=== PATIENT | male | born 1980 | race Caucasian/White ===

== ENCOUNTER 2025-01-25 08:29 | Outpatient (AMB) | payer OTHER, SELFPAY ==
--- NOTE | 2025-01-25 08:33 | A.OFFVIS_ITS ---
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 Patient was seen at [facility] and was referred to orthopedic. Currently he feels he tore his right bicep. His discomfort is located in his bicep and he has ongoing swelling. He has a tightness sensation with extending his arm. Patient has concerns of redness. Denies numbness or tingling. He has been out of work since his injury. Finds relief with icing and ibuprofen. Allergies azithromycin Allergy (Verified 01/25/25 08:38) Hives penicllin Allergy (Uncoded 01/25/25 08:38) Hives Medication List - Last Reconciled 01/25/25 by Juwan Gama PA-C No Known Home Meds HPI HPI SUBSORTER- RT distal bicep WC inj 01/17/25: Details: A year old gentleman presents to the office today for an injury he sustained to his right biceps on 01/17/2025 while at work. 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 He immediately felt pain in the right biceps region. He was seen in urgent care where evaluation was suspicious of a biceps tendon injury and he was referred to our office for ortho eval. He states since the date of injury he has been out of work. FORMERLY [facility], [facility]1983 Medical History (Updated 01/25/25 @ 14:04 by Iesha Rosa RN) Insomnia Surgical History (Updated 01/25/25 @ 14:28 by Iesha Rosa RN) Hx of arthroscopy of knee Social History (Updated 01/25/25 @ 08:38 by DORIAN Sosa) Household Members Other:: roommate Are you a primary child care center assistant director to a significant other at home: No Do you presently have visiting nurse or other home services: No Patient Tobacco Use Status: Never used Tobacco Have you been hit, kicked, punched, or otherwise hurt by someone within the past year? 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 Review of Systems Const All systems reviewed & are unremarkable except as noted in HPI and below Physical Exam Const General: cooperative, healthy appearing, comfortable, no acute distress, well developed and alert Orientation/consciousness: patient oriented x3 HEENT Head: Yes normal to inspection, Yes normocephalic and Yes atraumatic Eyes General: appearance normal, both eyes and all related structures Neck Neck: Yes normal visual inspection and Yes no lymphadenopathy Resp Effort & Inspection: normal respiratory effort and able to speak in complete sentences Cardio Rate: regular rate Peripheral pulses: Peripheral pulses 2+ throughout GI Inspection: Yes normal to inspection Palpation (GI): Soft to palpation Skin General skin exam: no rashes or lesions noted Neuro General: patient oriented x3 Extrem Other: Right elbow normal to inspection. There is significant ecchymosis over the bicep region with pain along the distal bicep tendon with a notable defect. Pain with pronation against resistance. Psych Appearance: grossly normal Mental Status: mental status grossly normal Assessment & Plan Assessment & Plan (1) Rupture of right biceps tendon: Code(s): S46.211A - Strain of muscle, fascia and tendon of other parts of biceps, right arm, initial encounter Category: Medical Qualifiers: Encounter type: initial encounter Qualified Code(s): S46.211A - Strain of muscle, fascia and tendon of other parts of biceps, right arm, initial encounter Plan: This is a 45-year-old right hand dominant gentleman who sustained an injury to his right distal biceps at work. WorksHe for the [employer] and forcefully opening a door and felt a pop in his right antecubital fossa. This occurred 8 days ago. He presents today with pain and weakness. On evaluation he had a positive hook test and weakness in supination consistent with a full rupture of the distal biceps. This was 8 days ago he is very active. I am concerned about the timing of surgery and the increasing difficulty of repair as more time passes. As a result we discussed urgent repair and he will be scheduled later today. I discussed the surgery with him. I discussed the risks, benefits and alternatives of surgery including, but not limited to, the risk of infection, stiffness, re-injury, injury to nerve and tendon. I discussed the possibility of retraction and the potential difficulty in repair. I explained the expected duration of recovery. He expressed understanding. All his questions were answered. We will proceed forward accordingly. Coding Level of Care Code New Pt Level 4 (77197) Complex EM visit Add On G2211 Diagnoses Rupture of right biceps tendon, initial encounter S46.576G Encounter type: initial encounter
--- OUTSIDE RECORDS SUMMARY | 2025-01-25 08:37 | XMS_ITS | Clinical Summary ---
Author Organization [facility] Address [address] [place] [address] Care Team Providers Care Hide Cleaner Name Role Phone Unknown Primary Care Provider [phone] -[phone] Allergies Active Allergy Reactions Criticality Noted Date Comments Azithromycin Other (See Comments) 09/01/2020 Penicillins Hives Medium 09/01/2020 Medications esomeprazole (NexIUM) 40 MG capsuleIndicatio ns:Gastroesophag eal reflux disease without esophagitis Take 1 capsule (40 mg total) by mouth every morning before breakfast. 30 capsule 1 10/20/2020 Active Active Problems No known active problems Social History Tobacco Use Types Packs/Day Years Used Date Smoking Tobacco: Never Assessed Sex and Gender Information Value Date Recorded Sex Assigned at Not on file Legal Sex Male 8:41 AM EST Gender Identity Not on file Sexual Orientation Not on file Last Filed Vital Signs Vital Sign Reading Time Taken Comments Blood Pressure 141/87 10/20/2020 8:52 AM EST Pulse 81 10/20/2020 8:52 AM EST Temperature 36.8 ??C (98.2 ??F) 10/20/2020 8:52 AM ES T Respiratory Rate - - Oxygen Saturation 98% 10/20/2020 8:52 AM EST Inhaled Oxygen Concentration - - Weight 102 kg (225 lb) 10/20/2020 8:52 AM EST Height 182.9 cm (6') 10/20/2020 8:52 AM EST Body Mass Index 30.52 10/20/2020 8:52 AM EST Plan of Treatment Health Maintenance Due Date Last Done Comments Hepatitis C Virus Screening 1981 HIV Screening 1994 DTaP/Tdap/Td Vaccines (1 - Tdap) 01/13/2000 Hepatitis B Vaccines (1 of 3 - 19+ 3-dose series) 01/13/2000 COVID-19 Vaccine (2023-2 5 season) 2024 Influenza Vaccine 04/05/2025 HPV Vaccines Aged Out No longer eligi ble based on patient's age to complete this topic Pneumococcal Vaccine: Pediat jeff (0-5 Years) and At-Risk Patients (6 to 49 Years) Aged Out No longer eligible b ased on patient's age to complete this topic Insurance Care Teams Hide Cleaner Relationship Specialty Start Date End Date Unknown Unknow Provider Address PCP - General 09/05/20
== END 2025-01-25 10:13 | disposition home or self-care (01) ==
PROVIDERS: PCP Internal Medicine; Visit Provider Physician Assistant
DX: S46.211A Strain of muscle, fascia and tendon of other parts of biceps, right arm, initial encounter (principal)
CPT/HCPCS: 99204

== ENCOUNTER → 2025-01-25 08:29 | Outpatient (BNVA) | payer OTHER, SELFPAY | PROVIDERS: PCP Internal Medicine; Visit Provider Physician Assistant | DX: S46.211A Strain of muscle, fascia and tendon of other parts of biceps, right arm, initial encounter (principal) | CPT/HCPCS: 99202 ==

== ENCOUNTER 2025-01-25 13:15 | Day surgery (SDC) | payer OTHER, SELFPAY ==
[2025-01-25] VITALS (7 sets, daily range): BP systolic 118–153; BP diastolic 58–95; PULSE 72–96; RESP 12–20; TEMP 36.1–36.9; O2SAT 96–99; BMI 29.2
--- NOTE | ~2025-01-25 | FL_ITS ---
EXAMINATION: FL GUIDANCE ONLY HISTORY: RIGHT DISTAL BICEPS REPAIR COMPARISON: None available. TECHNIQUE: Fluoroscopy time: 22.96 seconds. Cumulative Dose: 0.995 mGy. DAP: 0.0603 mGym2 Images: 4. FINDINGS: Images demonstrate a metallic orthopedic suture button along the proximal radius. FL/FL guidance in OR IMPRESSION: Fluoroscopy during procedure. Please see procedure report for additional information. Electronically signed by: Omi Rolon MD 01/29/2025 07:04 AM EDT
[2025-01-25] MEDS: Lactated Ringers 1,000 ML 80 ML IVCONT (14:19)
--- NOTE | 2025-01-25 14:55 | PC.NURSE ---
Dr. Alvarado updated regarding patient allergies and reactions. Stated okay to proceed with cefazolin as ordered.
[2025-01-25] MEDS: ceFAZolin Sodium/Dextrose,Iso 2 GM/50 ML PIGGYBACK IV (15:43)
--- NOTE | 2025-01-25 15:57 | P.CONAN_ITS ---
HPI - Anesthesia Eval Consult details Narrative: 45 yo M presenting for right distal bicep tendon repair PMFSH Active Problems Active Problems: All Active Problems Rupture of right biceps tendon (Acute) Past Medical History Medical History (Updated 01/25/25 @ 14:04 by Iesha Rosa RN) Insomnia Family History Family history of problems with anesthesia: No Surgical History Surgical History (Updated 01/25/25 @ 14:28 by Iesha Rosa RN) Hx of arthroscopy of knee History of Problems with Anesthesia: No Social History Social History (Updated 01/25/25 @ 08:38 by Ibis Cordova David) Household Members Other:: roommate Are you a primary animal care worker to a significant other at home: No Do you presently have visiting nurse or other home services: No Patient Tobacco Use Status: Never used Tobacco Have you been hit, kicked, punched, or otherwise hurt by someone within the past year? 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 Meds Allergies Allergy/AdvReac Type Severity Reaction Status Date / Time azithromycin Allergy Hives Verified 01/25/25 08:38 penicllin Allergy Hives Uncoded 01/25/25 08:38 Active Medications: Current Medications Lactated Ringer's (Lr) 1,000 mls @ 80 mls/hr IVCONT .[id number] Last Admin: 01/25/25 14:19 Dose: 80 mls/hr Exam Exam Date and Time: 01/25/25 1510 Height,Weight and Vital Signs: Height 6 ft Weight 97.522 kg Last Vital Signs Temp 98.5 F 01/25/25 14:23 Pulse 74 01/25/25 14:23 Resp 18 01/25/25 14:23 BP 153/95 H 01/25/25 14:23 Pulse Ox 99 01/25/25 14:23 O2 Del Method Room Air 01/25/25 14:23 Airway Mallampati Class: I TM Dist: >3cm Neck ROM: Full Loose/Missing/Broken Teeth: No (patient denies any loose or broken teeth) Heart: S1S2 Lungs: CTAB Assessment and Plan Assessment Anesthesia Assessment: Anesthesia Plan Discussed and Chart Reviewed Final Anesthetic Review Family History of Problems with Anesthesia: No History of Problems with Anesthesia: No NPO: Yes ASA Class: I Final Preanesthetic Review: No Changes in Pt Med Stat, Meds/Allgs Chart Reviewed, Consent Obtained/Reviewed and Anes Risks/Benef Reviewed Patient Risk: Low Procedure Risk: Low Anesthetic Plan Anesthetic Plan: GA, Regional Block (right brachial plexus block) and Agree w/ Assess. and Plan Disposition: Standard PACU
--- NOTE | 2025-01-25 17:25 | PM.OP ---
Brief Operative Note Date of Service: 01/25/25 Pre-op diagnosis: Right distal biceps rupture Post-op diagnosis: same Procedure: Right distal biceps repair Implants: Arthrex distal biceps suture button and interference screw Surgeon: Scott Alvarado MD Anesthesia: GLMA and regional Was an Automotive Machinist Apprentice used for this Procedure?: Yes Automotive Machinist Apprentice: Dawna Gee Estimated blood loss (mL): 20 Tourniquet time (min): 10 IV fluids (mL): 1,000 Pathology: none sent Condition: stable Disposition: PACU
--- NOTE | 2025-01-25 17:29 | P.OP_ITS ---
Operative Note Operative Note Date of Service: 01/25/25 Narrative: Date of Service: 01/25/25 Pre-op diagnosis: Right distal biceps rupture Post-op diagnosis: same Procedure: Right distal biceps repair Implants: Arthrex distal biceps suture button and interference screw Surgeon: Scott Alvarado MD Anesthesia: GLMA and regional Was an Public Finance Specialist used for this Procedure?: Yes Public Finance Specialist: Dawna Gee Estimated blood loss (mL): 20 Tourniquet time (min): 10 IV fluids (mL): 1,000 Pathology: none sent Condition: stable Disposition: PACU Procedure in detail: Patient was brought to the operating room and placed supine on the surgical table. He was prepped and draped in standard sterile fashion and a time out was called to identify proper site, proper procedure and IV antibiotics per weight were administered. A began by exsanguinating limited spleen tourniquet to 250 mm Hg. I then began by localizing the proximal biceps tuberosity. A transverse incision was made at this level. Prominent antecubital fossa vasculature was present. Careful dissection was taken down to the biceps sheath. Milking maneuver was performed and produced serous fluid. I tried to find the biceps screw was unable to at this point. I then let the tourniquet down and after a milking maneuver was able to identify and retrieve the completely ruptured biceps tendon. The tendon was tight and mobile but had retracted extensive. The tendon was bulbous and overall healthy in appearance. I then trimmed down the end of the tendon with tenotomy scissors and whip-stitched with a FiberWire down to a 7 diameter. I then identified the proximal radial tuberosity and then used a Beefpin to drill bicortically. I then over-drilled with a 7.5 mm Reamer the proximal cortex only. I then attached the suture button and passed this with the Passer through both cortices of the proximal radius. I then flipped the button and tightened the suture bringing the biceps and dunking it into the proximal radius. I then tied the suture button with a suture Passer and placed a interference screw with good purchase through the same unicortical drill hole. Once this was done I took the elbow through full range of motion. There was full extension flexion supination and pronation. I could palpate the tendon stable and attached to bone distally. I was satisfied with the repair. I then irrigated copiously and closed with running V lock absorbable suture and skin glue. Patient was then placed into sterile dressing and a lateral splint was applied. He was placed in a sling awakened from anesthesia and brought to recovery room in stable condition. There were no known complications.
== END 2025-01-25 18:20 | disposition home or self-care (01) ==
LOC: HO.SSS 13:15
PROVIDERS: PCP Nurse Practitioner Adult Health; Visit Provider Orthopaedic Surgery
PROC: (CPT 24341; principal; 2025-01-25 15:00)
DX: S46.211A Strain of muscle, fascia and tendon of other parts of biceps, right arm, initial encounter (principal); W22.09XA Striking against other stationary object, initial encounter; Y99.0 Civilian activity done for income or pay; Y93.89 Activity, other specified; Y92.89 Other specified places as the place of occurrence of the external cause; Z88.0 Allergy status to penicillin; Z88.1 Allergy status to other antibiotic agents; G47.00 Insomnia, unspecified; Z98.890 Other specified postprocedural states
CPT/HCPCS: 24342; C1713; J0131; J0690; J1100; J2003; J2250; J2405; J2704; J3010

== ENCOUNTER → 2025-01-25 13:15 | Outpatient (BNV) | payer OTHER, SELFPAY | PROVIDERS: PCP Nurse Practitioner Adult Health; Visit Provider Orthopaedic Surgery | DX: S46.211A Strain of muscle, fascia and tendon of other parts of biceps, right arm, initial encounter (principal) | CPT/HCPCS: 24342 ==

== ENCOUNTER 2025-01-31 08:45 | Outpatient (AMB) | payer OTHER, SELFPAY ==
--- NOTE | 2025-01-31 08:50 | MHC.OFFVIS ---
Intake Visit Reasons: PO RT bicep tendon repair 01/25/25 NE Intake Note: Edis is a 45 year old right hand dominant male who presents today for a post op appointment s/p Right distal biceps repair 01/25/25 NE. Patient reports he is doing well and he is managing his pain well. Allergies azithromycin Allergy (Verified 01/25/25 08:38) Hives penicllin Allergy (Uncoded 01/25/25 08:38) Hives HPI HPI PO RT bicep tendon repair 01/25/25 NE: Details: Mr. Shaver is a 45-year-old male who presents to the office today for his 1st postop status post right distal biceps tendon repair performed on 01/25/[address] Alvarado. Overall the patient is doing very well. He has minimal pain. He presents to the office today in the sling accompanied by the lateral bolster elbow splint. Pain is managed and there is no additional complaints at the time. 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 Steri-Strips are intact. There is no surrounding erythema or drainage. No signs of infection. Range of motion roughly 70-100 degrees. NVI. Assessment & Plan Assessment & Plan (1) Rupture of right biceps tendon: Code(s): S46.211A - Strain of muscle, fascia and tendon of other parts of biceps, right arm, initial encounter Category: Medical Qualifiers: Encounter type: initial encounter Qualified Code(s): S46.211A - Strain of muscle, fascia and tendon of other parts of biceps, right arm, initial encounter Plan Mr. Shaver is a 45-year-old male who presents to the office today for his 1st postop status post right distal biceps tendon repair performed on 01/25/[address] Alvarado. Overall the patient is doing very well. He has minimal pain. He presents to the office today in the sling accompanied by the lateral bolster elbow splint. Pain is managed and there is no additional complaints at the time. While in the office today, the incision site does not show any signs of infection. The Steri-Strips remain in place until they fall off on their own. He may shower at this time. I recommended against any soaking. In the shower he can use soap to gently wash the area and then pat dry with a towel. I would advise against any lifting pushing or pulling with the right upper extremity. A physical therapy order has been placed in the office today. I do not want him to push past pain for extension. Patient understands and accepts. Physical therapy will help guide the patient in regards to range of motion. I did advise that he should wear his sling while leaving the house for protection. Otherwise, he will use the sling for comfort and I recommended that during the day he tried to remain out of the sling. He will follow up in [address] Alvarado, sooner if needed. Patient was given an out-of-work note until follow up appointment. 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 Orders: Orders OT Evaluation and Treatment Today S46.211A - Strain of muscle, fascia and tendon of other parts of biceps, right arm, initial encounter Coding Level of Care Code Global (84503) Diagnoses Rupture of right biceps tendon, initial encounter S46.211A Encounter type: initial encounter
== END 2025-01-31 09:02 | disposition home or self-care (01) ==
LOC: HO.HOS 08:46
PROVIDERS: PCP Internal Medicine; Visit Provider Physician Assistant
DX: S46.211A Strain of muscle, fascia and tendon of other parts of biceps, right arm, initial encounter (principal)
CPT/HCPCS: 99024

== ENCOUNTER → 2025-01-31 08:45 | Outpatient (BNVA) | payer OTHER, SELFPAY | PROVIDERS: PCP Internal Medicine; Visit Provider Physician Assistant | DX: S46.211A Strain of muscle, fascia and tendon of other parts of biceps, right arm, initial encounter (principal); X58.XXXA Exposure to other specified factors, initial encounter; Y93.9 Activity, unspecified; Y92.9 Unspecified place or not applicable; Y99.9 Unspecified external cause status; Z04.2 Encounter for examination and observation following work accident | CPT/HCPCS: 99212 ==

== ENCOUNTER 2025-02-28 08:31 | Outpatient (AMB) | payer OTHER, SELFPAY ==
--- NOTE | 2025-02-28 08:35 | A.OFFVIS_ITS ---
Vital Signs 02/28/25 08:36 Height 6 ft Weight 210 lb BMI 28.5 Intake Visit Reasons: PO RT bicep tendon repair 01/25/25 NE Intake Note: Edis is a 45 year old male who presents today for a post operative appointment about one month s/p Right Distal Biceps Repair 01/25/25. He continues to wear the sling..Patient reports that he is doing well with no current concerns. 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 He is doing very well. He can almost get his elbow straight. 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 Full sup/pro Assessment & Plan Assessment & Plan (1) Rupture of right biceps tendon: Code(s): S46.211A - Strain of muscle, fascia and tendon of other parts of biceps, right arm, initial encounter Category: Medical Qualifiers: Encounter type: initial encounter Qualified Code(s): S46.211A - Strain of muscle, fascia and tendon of other parts of biceps, right arm, initial encounter Plan: Doing well. May DC sling. Follow up in 6 weeks. Range of motion without resistance for 2 weeks followed by gentle resistance. No work. Coding Level of Care Code Global (84649) Diagnoses Rupture of right biceps tendon, initial encounter S46.211A Encounter type: initial encounter
[2025-02-28 08:36] VITALS: BMI 28.5
--- OUTSIDE RECORDS SUMMARY | 2025-02-28 08:53 | XMS_ITS | Clinical Summary ---
Author Organization [facility] Address [address] [place] [address] Care Team Providers Care Chief Operating Officer Name Role Phone Unknown Primary Care Provider [...] 81 10/20/2020 8:52 AM EST Temperature 36.8 C (98.2 F) 10/20/2020 8:52 AM EST Respiratory Rate - - Oxygen Saturation 98% [...] to complete this topic Insurance Care Teams Chief Operating Officer Relationship Specialty Start Date End Date Unknown Unknow Provider Address PCP - General 09/05/20
== END 2025-02-28 09:00 | disposition home or self-care (01) ==
LOC: HO.HOS 08:31
PROVIDERS: PCP Internal Medicine; Visit Provider Orthopaedic Surgery
DX: S46.211A Strain of muscle, fascia and tendon of other parts of biceps, right arm, initial encounter (principal)
CPT/HCPCS: 99024

== ENCOUNTER → 2025-02-28 08:31 | Outpatient (BNVA) | payer OTHER, SELFPAY | PROVIDERS: PCP Internal Medicine; Visit Provider Orthopaedic Surgery | DX: S46.211A Strain of muscle, fascia and tendon of other parts of biceps, right arm, initial encounter (principal); Z98.890 Other specified postprocedural states | CPT/HCPCS: 99212 ==

== ENCOUNTER 2025-04-03 08:49 | Outpatient (RCR) | payer OTHER, SELFPAY ==
--- NOTE | 2025-02-04 15:41 | MHC.OT.EP ---
[address] [phone] Occupational Therapy Plan of Care Patient Name: Edis Shaver Date of Evaluation: 02/04/25 Diagnosis: R distal biceps Repair Pain Location: R biceps Pain Score: 2 Pain Scale Used: Numeric (0 - 10) Aggravating Factors: ibuprofen is helping to decrease pain/ swelling Alleviating Factors: Ibuprogfen Assessment: Pt is a R hand dominant male who ruptured his R distal bicep while at work; when breaching a door during a search warrant. Pt waited a few hours after and then went to urgent care the following day. He then saw and followed up w/ Dr. Alvarado and they agreed to repair his ruptured biceps tendon. He had surgery on 01/25 and was placed in a sling. Pt had a follow up w/ ortho recently. He was given a sling to wear ; which he wears mostly outside the home. Pt presents today w/ decreased ROM, strength, and functional use of his dominant UE. Pt would benefit from skilled OT therapy to address these deficits so pt may return to PLOF and RTW safely . Frequency and Duration: The patient will be seen 2 xs a week for 10 weeks Short Term Goals: Pt will adhere to HEP Pt will have 0 of pain free elbow extension Pt will have 130 of pain free elbow flexion Foot Gatherer Goals: Pt will have photoengraving finisher strength goals established for strengthening Pt will have MMT of elbow extension of 5 /5 Pt will report using his R UE to carry 20 lbs bilaterally w/out pain/ difficulty Treatment Plan: Therapeutic Exercise Therapeutic Activity Home Exercise Program Neuro Re-ed Patient Education Desensitization/Sensory Re-ed Edema Control ADL Training Ultrasound NMES Iontophoresis Paraffin MHP Cold Packs Joint Mobilization Soft Tissue Mobilization Kinesiotaping Electronically Signed By: Sade Otero OTR/L Please Sign and return to therapist. Thank you once again for your referral.
== END 2025-04-04 15:32 | disposition home or self-care (01) ==
LOC: HO.OT 08:49
PROVIDERS: PCP Nurse Practitioner Adult Health; Visit Provider Physician Assistant
DX: S46.211D Strain of muscle, fascia and tendon of other parts of biceps, right arm, subsequent encounter (principal); Z98.890 Other specified postprocedural states
CPT/HCPCS: 97110; 97140; 97165; 97535

== ENCOUNTER 2025-04-11 07:42 | Outpatient (REF) | payer OTHER, SELFPAY ==
--- NOTE | ~2025-04-11 | XR_ITS ---
EXAMINATION: XR ELBOW, RIGHT CLINICAL INFORMATION: M25.529 - Pain in unspecified elbow COMPARISON: None available. TECHNIQUE: AP, lateral, and oblique views of the right elbow. FINDINGS: There has been a prior biceps tendon repair. There is no fracture, dislocation, or suspicious bone lesion. There is no malalignment. There is no evidence of joint effusion. There is a large olecranon spur present with mild soft tissue prominence overlying. 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 The epicondyles have a normal appearance. No soft tissue abnormality. XR/XR elbow RT 2V IMPRESSION: 1. Prior bicipital tendon repair. 2. No acute findings of the elbow. No joint effusion. 3. Large olecranon spur with mild overlying soft tissue prominence. 4. 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 Electronically signed by: Colin Guy MD 04/11/2025 08:47 AM EDT
--- OUTSIDE RECORDS SUMMARY | 2025-04-11 07:45 | XMS_ITS | Clinical Summary ---
Author Organization [facility] Address [address] [place], [place] [id number] Phone Care Team Providers Care Enterprise Mobility Architect Name Role Phone Rico Ignacio MD Primary Care Provider [phone] Allergies Active Allergy Reactions Criticality Noted Date Comments Azithromycin 09/01/2020 Penicillins 09/01/2020 Medications esomeprazole (NEXIUM) 40 MG capsule Take 40 mg by mouth. 10/20/2020 Active pantoprazole (PROTONIX) 40 MG tablet TAKE 1 TABLET BY MOUTH DAILY (SWALLOW WHOLE) 01/18/2022 Active venlafaxine (EFFEXOR-XR) 75 MG 24 hr capsule 02/19/2022 [facility] Other [facility] Administered Medication Ordered Dose Route Frequency Start Date End Date Status lidocaine (XYLOCAINE) 1% injection 2 mL 2 mL See Adm Inst See admin instructions 03/05/2022 Active bupivacaine HCl (MARCAINE) 0.25% injection 2 mL 2 mL See Adm Inst See admin instructions 03/05/2022 Active triamcinolone acetonide (KENALOG-40) 40 mg/mL injection 40 mg 40 mg See Adm Inst See admin instructions 03/05/2022 Active Active Problems No known active problems Social History Tobacco Use Types Packs/Day Years Used Date Smoking Tobacco: Never Smokeless Tobacco: Never Alcohol Use Standard Drinks/Week Comments Yes 0 (1 standard drink = 0.6 oz pur e alcohol) socially Education Answer Date Recorded Are you interested in more education? Not on jaenen e 01/09/2023 Are you concerned about learning? Not on file 01/09/2023 No 01/09/2023 No 01/09/2023 Digital Access Answer Date Recorded No 01/30/2023 No 01/30/2023 No 01/30/2023 Reliable internet access at home? Not on file 01/30/2023 Device with a working camera? Not on file Sex and Gender Information Value Date Recorded Sex Assigned at Not on file Legal Sex Male 6:29 PM EST Gender Identity Not on file Sexual Orientation Not on file Last Filed Vital Signs Vital Sign Reading Time Taken Comments Blood Pressure 110/75 02/08/2017 9:38 AM EDT Pulse 60 02/08/2017 9:38 AM EDT Temperature - - Respiratory Rate - - Oxygen Saturation - - Inhaled Oxygen Concentration - - Weight 99.8 kg (220 lb) 04/07/2022 9:40 AM EDT Height 182.9 cm (6') 04/07/2022 9:40 AM EDT Body Mass Index 29.84 04/07/2022 9:40 AM EDT Plan of Treatment Health Maintenance Due Date Last Done Comments LIPID PANEL 1981 DEPRESSION SCREENING 1993 HEPATITIS C SCREENING 1999 HIV ONE-TIME SCREENING (18-6 5 YEARS) 1999 SCREENING FOR DIABETES 01/13/2016 COVID-19 VACCINE (2023-2 5 season) 2024 Adult Td,Tdap Booster 07/15/2030 07/15/2020 SMOKING STATUS SCREENING (On ce After 26 Yrs) Completed 04/07/2022 HEPATITIS A VACCINES Aged Out No long er eligible based on patient's age to complete this topic HIB VACCINES Aged Out No longer eligi ble based on patient's age to complete this topic MENINGOCOCCAL VACCINES (ACWY) Aged Out No longer eligible based on patient's age to complete this topic MENINGOCOCCAL VACCINES (B) Aged Out N o longer eligible based on patient's age to complete this topic PNEUMOCOCCAL VACCINES (0-49 years) Aged Out No longer eligible based on patient's age to complete this topic Medical Devices Not on file Insurance [facility] EXPL[employer]ER POS [place] [address] [place] [address] [place] [address] [place] [address] [employer] POS 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 It is not the complete legal health record.[facility]
--- OUTSIDE RECORDS SUMMARY | 2025-04-11 07:45 | XMS_ITS | Clinical Summary ---
Author Organization [facility] Address [address] [place] [address] Care Team Providers Care Rehab Director Occupational Therapist Name Role Phone Unknown Primary Care Provider [...] to complete this topic Insurance Care Teams Rehab Director Occupational Therapist Relationship Specialty Start Date End Date Unknown Unknow Provider Address PCP - General 09/05/20
== END 2025-04-11 07:43 | disposition home or self-care (01) ==
LOC: HO.HOSX 07:42
PROVIDERS: Visit Provider Orthopaedic Surgery
DX: S46.211A Strain of muscle, fascia and tendon of other parts of biceps, right arm, initial encounter (principal); M25.521 Pain in right elbow; X58.XXXA Exposure to other specified factors, initial encounter
CPT/HCPCS: 73070; 99212

== ENCOUNTER 2025-04-11 08:35 | Outpatient (AMB) | payer OTHER, SELFPAY ==
--- NOTE | 2025-04-11 08:50 | A.OFFVIS_ITS ---
Vital Signs 04/11/25 08:51 Height 6 ft Weight 210 lb BMI 28.5 Intake Visit Reasons: PO RT bicep tendon repair 01/25/25 NE Intake Note: Edis is a 45 year old right hand dominant male who presents today for a post operative appointment s/p Right Distal Biceps Repair 01/25/25. He remains out of work at this time. Patient reports that he is doing well with no concerns and he is ready to return to work. Allergies azithromycin Allergy (Verified 04/11/25 08:53) Hives penicllin Allergy (Uncoded 04/11/25 08:53) Hives HPI HPI PO RT bicep tendon repair 01/25/25 NE: Details: Edis is a 45 year old right hand dominant male who presents today for a post operative appointment s/p Right Distal Biceps Repair 01/25/25. He remains out of work at this time. Patient reports that he is doing well with no concerns and he is ready to return to work. 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 No pain with resisted supination. 5/5 strength. Assessment & Plan Assessment & Plan (1) Rupture of right biceps tendon: Code(s): S46.211A - Strain of muscle, fascia and tendon of other parts of biceps, right arm, initial encounter Category: Medical Qualifiers: Encounter type: initial encounter Qualified Code(s): S46.211A - Strain of muscle, fascia and tendon of other parts of biceps, right arm, initial encounter Plan: Edis is doing very well. He has full range of motion and excellent strength. He may resume work as tolerated. We had a long discussion regarding the risks of returning to work. 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 He understands that his bicep is unlikely as strong as it will be over the next 3 months and that he is at increased risk of rerupture over the next 3 months. Having said that he has full motion and excellent strength and may return to work as tolerated. I would like to see him back in 2 months' time. At that point I expect him to have reached MMI Orders: Orders XR elbow RT 2V Today M25.529 - Pain in unspecified elbow Coding Level of Care Code Global (94956) Diagnoses Rupture of right biceps tendon, initial encounter S46.211A Encounter type: initial encounter
[2025-04-11 08:51] VITALS: BMI 28.5
== END 2025-04-11 09:17 | disposition home or self-care (01) ==
LOC: HO.HOS 08:35
PROVIDERS: PCP Internal Medicine; Visit Provider Orthopaedic Surgery
DX: S46.211A Strain of muscle, fascia and tendon of other parts of biceps, right arm, initial encounter (principal)
CPT/HCPCS: 99024

== ENCOUNTER → 2025-04-11 08:38 | Outpatient (BNV) | payer OTHER, SELFPAY | PROVIDERS: Visit Provider Radiology Diagnostic Radiology | DX: M19.021 Primary osteoarthritis, right elbow (principal) | CPT/HCPCS: 73070 ==

== ENCOUNTER 2025-06-13 13:59 | Outpatient (AMB) | payer OTHER, SELFPAY ==
[2025-06-13 14:28] VITALS: BMI 28.5
--- NOTE | 2025-06-13 14:28 | MHC.OFFVIS ---
Vital Signs 06/13/25 14:28 Height 6 ft Weight 210 lb BMI 28.5 Intake Visit Reasons: OV/WC-RT bicep tendon repair 01/25/25 NE Intake Note: Edis is a 45 year old right hand dominant male who presents today for a post operative appointment s/p Right Distal Biceps Repair 01/25/25. This is a workmans comp injury from [employer] 01/17/25. 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 Currently he reports that he is doing well with no concerns. Allergies azithromycin Allergy (Verified 04/11/25 08:53) Hives penicllin Allergy (Uncoded 04/11/25 08:53) Hives HPI HPI OV/WC-RT bicep tendon repair 01/25/25 NE: Details: Edis is a 45 year old right hand dominant male who presents today for a post operative appointment s/p Right Distal Biceps Repair 01/25/25. This is a workmans comp injury from [employer] 01/17/25. 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 Currently he reports that he is doing well with no concerns. 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 May continue work as tolerated and f/u if needed. Coding Level of Care Code Est Pt Level 3 (22663) Diagnoses Rupture of right biceps tendon, initial encounter S46.211A Encounter type: initial encounter
== END 2025-06-13 14:34 | disposition home or self-care (01) ==
LOC: HO.HOS 14:00
PROVIDERS: Visit Provider Orthopaedic Surgery
DX: S46.211A Strain of muscle, fascia and tendon of other parts of biceps, right arm, initial encounter (principal)
CPT/HCPCS: 99213

== ENCOUNTER → 2025-06-13 13:59 | Outpatient (BNVA) | payer OTHER, SELFPAY | PROVIDERS: Visit Provider Orthopaedic Surgery | DX: S46.211D Strain of muscle, fascia and tendon of other parts of biceps, right arm, subsequent encounter (principal) | CPT/HCPCS: 99212 ==